=== PATIENT | female | born 1960 | race Caucasian/White ===

== ENCOUNTER 2018-01-08 22:25 | Observation (INO) | payer OTHER ==
[2018-01-08] MEDS ORDERED: NITROGLYCERIN 0.4 MG/TAB SL ONE (22:55)
[2018-01-08] MEDS ORDERED: ALBUTEROL 2.5 MG/3 ML NEB SOL ONE (23:02)
[2018-01-08] MEDS ORDERED: ASPIRIN 325 MG TAB ONE (23:02)
[2018-01-08 23:33] LABS: Absolute Lymphocytes (CBC) 1.9 K/uL (0.7-4.9); Absolute Monocytes 0.4 K/uL (0.1-1.3); Absolute Neutrophil 2.8 K/uL (1.8-8.0); Eosinophils % 9.3 % (0-4.4); Lymphocytes % 33.6 % (15.3-44.8); MCH 26.7 pg (27.0-35.0); MCV 81.9 fL (80-100); MPV 8.3 fL (7.6-11.3); Monocytes % 6.3 % (3.3-12.3)
[2018-01-08 23:36] LABS: Protime INR 1.13
[2018-01-08 23:51] LABS: ALT/SGPT 31 U/L (12-78); AST/SGOT 36 U/L (15-37); Albumin 2.8 g/dL (3.4-5.0); Alkaline Phosphatase 113 U/L (45-117); Amylase Level 38 U/L (25-115); BUN Blood Urea Nitrogen 13 mg/dL (7-18); Bicarbonate 32 mmol/L (21-32); Bilirubin Direct 0.2 mg/dL (0-0.2); Bilirubin Total 0.3 mg/dL (0.2-1.0); Glucose Level 84 mg/dL (74-106); Lipase 88 U/L (73-393); Magnesium 1.7 mg/dL (1.8-2.4); NT PRO-BNP 894 pg/mL (<125); Protein, Total 7.6 g/dL (6.4-8.2); Sodium Level 143 mmol/L (136-145)
[2018-01-09] MEDS ORDERED: FENTANYL CITR 100 MCG/2 ML ONE (00:58)
--- NOTE | 2018-01-09 03:57 | EDPHYS ---
Physician Documentation [facility] Name: Hermelinda Rinaldi Age: 57 yrs Sex: Female : 1960 Arrival Date: 01/08/2018 Time: 22:26 Bed 7 Private MD: ED Physician Hemant Edmondson HPI: 01/08 23:40 This 57 yrs old Female presents to ER via EMS with complaints of Chest Pain. wa 23:40 The patient has shortness of breath at rest, c/o SOB at rest x 2 weeks. worse with wa exertion. states feels swollen. also c/o having difficulty laying flat to sleep with chest discomfort. has to sit up to catch breath when sleeps. denies cough or fever. admits to chest tightness. h/o asthma and tobacco smoking. recent surgery L hip. in rehab for same. Onset: The symptoms/episode began/occurred 2 week(s) ago. Duration: The symptoms are continuous, and are steadily getting worse. The patient's shortness of breath is aggravated by exertion, light activity, supine position, walking, is alleviated by nothing. Associated signs and symptoms: Pertinent positives: chest pain, Pertinent negatives: non-productive cough, diaphoresis, dizziness, fever, hemoptysis, vomiting. Severity of symptoms: At their worst the symptoms were moderate in the emergency department the symptoms are worse moderately. The patient has not experienced similar symptoms in the past. The patient has not recently seen a physician. Historical: - Allergies: 22:50 No Known Allergies; bp - Home Meds: 22:50 clonidine HCl 0.1 mg Oral tab 1 tab once daily [Active]; Cymbalta 30 mg oral cpDR 1 cap bp once daily [Active]; gabapentin 300 mg oral cap 2 caps 3 times per day [Active]; losartan 50 mg oral tab 1 tab once daily [Active]; methadone 10 mg Oral tab 2 tab every 8 hours [Active]; Percocet 5-325 mg Oral tab 1 tab every 8 hours [Active]; Senokot 8.6 mg Oral tab 1 tabs twice a day [Active]; Singulair 10 mg Oral tab 1 tab once daily [Active]; trazodone 50 mg Oral tab 2 tabs nightly [Active]; - PMHx: 22:50 Depression; Asthma; Chronic pain; Hypertension; COPD; Anxiety; Hepatitis; bp - Immunization history:: Adult Immunizations up to date. - Social history:: Smoking status: Patient uses tobacco products, denies chronic smoking, but will smoke occasionally, Patient uses IV drugs, heroin. - Ebola Screening: : Patient negative for fever greater than or equal to 101.5 degrees Fahrenheit, and additional compatible Ebola Virus Disease symptoms Patient denies exposure to infectious person Patient denies travel to an Ebola-affected area in the 21 days before illness onset No symptoms or risks identified at this time. - Family history:: not pertinent. - Hospitalizations: : No recent hospitalization is reported. ROS: 23:44 Constitutional: Negative for fever, chills, and weight loss, Eyes: Negative for injury, wa pain, redness, and discharge, ENT: Negative for injury, pain, and discharge, Neck: Negative for injury, pain, and swelling, Abdomen/GI: Negative for abdominal pain, nausea, vomiting, diarrhea, and constipation, Back: Negative for injury and pain, : Negative for injury, bleeding, discharge, and swelling, MS/Extremity: Negative for injury and deformity, Skin: Negative for injury, rash, and discoloration, Neuro: Negative for headache, weakness, numbness, tingling, and seizure, Psych: Negative for depression, anxiety, suicide ideation, homicidal ideation, and hallucinations. 23:44 Cardiovascular: Positive for chest pain, edema, paroxysmal nocturnal dyspnea, Negative for palpitations. 23:44 Respiratory: Positive for shortness of breath, at rest. Negative for cough. 23:44 All other systems are negative. Exam: 23:45 Constitutional: This is a well developed, well nourished patient who is awake, alert, wa and in no acute distress. Head/Face: Normocephalic, atraumatic. Eyes: Pupils equal round and reactive to light, extra-ocular motions intact. Lids and lashes normal. Conjunctiva and sclera are non-icteric and not injected. Cornea within normal limits. Periorbital areas with no swelling, redness, or edema. ENT: Nares patent. No nasal discharge, no septal abnormalities noted. Tympanic membranes are normal and external auditory canals are clear. Oropharynx with no redness, swelling, or masses, exudates, or evidence of obstruction, uvula midline. Mucous membranes moist. Neck: Trachea midline, no thyromegaly or masses palpated, and no cervical lymphadenopathy. Supple, full range of motion without nuchal rigidity, or vertebral point tenderness. No Meningismus. Chest/axilla: Normal chest wall appearance and motion. Nontender with no deformity. No lesions are appreciated. Abdomen/GI: Soft, non-tender, with normal bowel sounds. No distension or tympany. No guarding or rebound. No evidence of tenderness throughout. Back: No spinal tenderness. No costovertebral tenderness. Full range of motion. Skin: Warm, dry with normal turgor. Normal color with no rashes, no lesions, and no evidence of cellulitis. Neuro: Awake and alert, GCS 15, oriented to person, place, time, and situation. Cranial nerves II-XII grossly intact. Motor strength 5/5 in all extremities. Sensory grossly intact. Cerebellar exam normal. Normal gait. Psych: Awake, alert, with orientation to person, place and time. Behavior, mood, and affect are within normal limits. 23:45 Cardiovascular: Rate: normal, Rhythm: regular, Pulses: no pulse deficits are appreciated, Heart sounds: normal, Edema: 1+ edema to level of left ankle, left foot, left toes, right ankle, right foot and right toes. 23:45 Respiratory: the patient does not display signs of respiratory distress, Respirations: normal, Breath sounds: decreased breath sounds, that are moderate, Respiratory rate: normal Vital Signs: 22:15 BP 171 / 81; Pulse 76; Resp 14; Temp 97.8; Pulse Ox 100% ; Weight 90.72 kg; Height 5 bp ft. 3 in. (160.02 cm); 23:00 BP 128 / 66; Pulse 69; Resp 17 S; Pulse Ox 97% on R/A; jd3 23:50 BP 120 / 61; Pulse 69; Resp 15 S; Pulse Ox 98% on R/A; jd3 01/09 01:11 BP 129 / 63; Pulse 66; Resp 14 S; Pulse Ox 96% on R/A; jd3 01:56 BP 138 / 63; Pulse 67; Resp 16; Pulse Ox 99% on R/A; mt 02:46 BP 125 / 60; Pulse 66; Resp 14; Pulse Ox 97% on R/A; mt 03:44 BP 138 / 69; Pulse 63; Resp 16; Pulse Ox 99% on R/A; mt 04:32 BP 130 / 74; Pulse 64; Resp 14 S; Pulse Ox 96% on R/A; jd3 01/08 22:15 Body Mass Index 35.43 (90.72 kg, 160.02 cm) bp MDM: 01/08 22:35 Patient medically screened. fl 23:46 Differential diagnosis: CHF exacerbation, Myocardial Infarction pneumonia, pulmonary wa edema, Pulmonary Embolism reactive airway disease, Unstable Angina. 01/09 03:54 Data reviewed: vital signs, nurses notes, lab test result(s). Test interpretation: by fl ED physician or midlevel provider: labs noted for anemia and elevated BNP. 03:55 Test interpretation: by ED physician or midlevel provider: CT chest: no PE. COPD. fl borderline cardiomegaly. Response to treatment: the patient's symptoms have markedly improved after treatment. Physician consultation: Marvin Ray MD was called at 03:56. Admission orders: after a detailed discussion of the patient's condition and case, the admit orders are written by me. 03:57 Test interpretation: by ED physician or midlevel provider: EKG: HR 70. low voltage. no fl obvious acute ischemic changes. 04:20 ED course: pt signed out AMA. risks explained and accepted by this pt w/ capacity at fl time of AMA. states needs her methadone and will not stay in the hospital without it. . 01/08 22:50 Order name: Amylase, Serum; Complete Time: 00:11 01/08 22:50 Order name: Blood Culture Adult (2) fl 01/08 22:50 Order name: BMP; Complete Time: 00:11 01/08 22:50 Order name: CBC with Diff; Complete Time: 00:11 fl 01/08 22:50 Order name: Hepatic Function; Complete Time: 00:12 01/08 22:50 Order name: Lipase; Complete Time: 00:12 01/08 22:50 Order name: XRAY CXR (1 view) 01/08 22:50 Order name: Magnesium; Complete Time: 00:12 01/08 22:50 Order name: NT PRO-BNP; Complete Time: 00:12 fl 01/08 22:50 Order name: PT-INR; Complete Time: 00:12 01/08 22:50 Order name: Troponin (emerg Dept Use Only); Complete Time: 00:12 01/09 00:13 Order name: CT Chest For PE Angio fl 01/08 22:50 Order name: EKG; Complete Time: 22:50 fl 01/08 22:50 Order name: Cardiac monitoring; Complete Time: 22:55 fl 01/08 22:50 Order name: EKG - Nurse/Tech; Complete Time: 22:55 fl 01/08 22:50 Order name: IV Saline Lock; Complete Time: 23:50 fl 01/08 22:50 Order name: Labs collected and sent; Complete Time: 23:50 fl 01/08 22:50 Order name: O2 Per Protocol; Complete Time: 22:55 fl 01/08 22:50 Order name: O2 Sat Monitoring; Complete Time: 22:55 fl Administered Medications: 01/08 22:55 Drug: Nitroglycerin 0.4 mg Route: Sublingual; [facility] 01/09 04:00 Follow up: Response: No adverse reaction [facility] 01/08 23:10 Drug: Aspirin 325 mg Route: PO; [facility] 01/09 04:01 Follow up: Response: No adverse reaction [facility] 01/08 23:10 Drug: Albuterol 2.5 mg Route: Inhalation; [facility] 01/09 04:01 Follow up: Response: No adverse reaction [facility] 01:04 Drug: fentaNYL (PF) 75 mcg Route: IVP; Site: right antecubital; [facility] 04:01 Follow up: Response: No adverse reaction [facility] Disposition: 01/09/18 03:57 Hospitalization ordered by Marvin Ray for Observation. Preliminary diagnosis are Shortness of Breath, Chest pain. - Bed requested for [facility] ER [facility]. - Status is Observation. j - Condition is Stable. - Problem is new. - Symptoms have improved. UTI on Admission? No Signatures: Dispatcher [employer] EDMS Dian Vital RN RN mw Appiah, William, MD MD wa Davies, Jonathon, RN RN jd3 Peltier, Brian RN RN bp Corrections: (The following items were deleted from the chart) 04:00 03:57 Hospitalization Ordered by Marvin Ray MD for Observation. Preliminary mw diagnosis is Shortness of Breath; Chest pain. Bed requested for Telemetry/MedSurg (observation). Status is Observation. Condition is Stable. Problem is new. Symptoms have improved. UTI on Admission? No. fl 05:34 04:00 01/09/2018 03:57 Hospitalization Ordered by Marvin Ray MD for Observation. jd3 Preliminary diagnosis is Shortness of Breath; Chest pain. Bed requested for [facility] ER HOLD. Status is Observation. Condition is Stable. Problem is new. Symptoms have improved. UTI on Admission? No. mw
--- NOTE | 2018-01-09 03:57 | ER ---
Nurse's Notes [facility] Name: Hermelinda Rinaldi Age: 57 yrs Sex: Female : 1960 Arrival Date: 01/08/2018 Time: 22:26 Bed 7 Private MD: Diagnosis: Shortness of Breath;Chest pain Presentation: 01/08 22:27 Presenting complaint: EMS states: CHEST PAIN INTERMITTENTLY FOR TWO WEEKS AND bp HYPERTENSION, THE GROUP HOME DOCTOR SAID HER EKG TODAY WAS ABNORMAL. Transition of care: patient was received from another setting of care (long-term care facility), [facility]. Onset of symptoms is unknown. Risk Assessment: Do you want to hurt yourself or someone else? Patient reports no desire to harm self or others. Initial Sepsis Screen: Does the patient meet any 2 criteria? No. Patient's initial sepsis screen is negative. Does the patient have a suspected source of infection? No. Patient's initial sepsis screen is negative. Care prior to arrival: None. 22:27 Method Of Arrival: EMS: [facility] bp 22:27 Acuity: VICTOR HUGO 2 bp Triage Assessment: 22:39 General: Appears in no apparent distress. comfortable, Behavior is calm, cooperative, bp appropriate for age. Pain: Complains of pain in chest and abdomen. EENT: Sclera/Cornea JAUNDICE. Neuro: Level of Consciousness is awake, alert, obeys commands, Oriented to person, place, time, situation, Appropriate for age. Cardiovascular: Rhythm is sinus rhythm. Respiratory: Airway is patent Respiratory effort is even, unlabored, Respiratory pattern is regular, symmetrical. GI: Abdomen is distended, noted to have ascites. : No signs and/or symptoms were reported regarding the genitourinary system. Derm: Skin is jaundiced. Musculoskeletal: Circulation, motion, and sensation intact. Range of motion: limited in left hip. Historical: - Allergies: 22:50 No Known Allergies; bp - Home Meds: 22:50 clonidine HCl 0.1 mg Oral tab 1 tab once daily [Active]; Cymbalta 30 mg oral cpDR 1 cap bp once daily [Active]; gabapentin 300 mg oral cap 2 caps 3 times per day [Active]; losartan 50 mg oral tab 1 tab once daily [Active]; methadone 10 mg Oral tab 2 tab every 8 hours [Active]; Percocet 5-325 mg Oral tab 1 tab every 8 hours [Active]; Senokot 8.6 mg Oral tab 1 tabs twice a day [Active]; Singulair 10 mg Oral tab 1 tab once daily [Active]; trazodone 50 mg Oral tab 2 tabs nightly [Active]; - PMHx: 22:50 Depression; Asthma; Chronic pain; Hypertension; COPD; Anxiety; Hepatitis; bp - Immunization history:: Adult Immunizations up to date. - Social history:: Smoking status: Patient uses tobacco products, denies chronic smoking, but will smoke occasionally, Patient uses IV drugs, heroin. - Ebola Screening: : Patient negative for fever greater than or equal to 101.5 degrees Fahrenheit, and additional compatible Ebola Virus Disease symptoms Patient denies exposure to infectious person Patient denies travel to an Ebola-affected area in the 21 days before illness onset No symptoms or risks identified at this time. - Family history:: not pertinent. - Hospitalizations: : No recent hospitalization is reported. Screenin/20 04:31 Abuse screen: Denies threats or abuse. Nutritional screening: No deficits noted. jd3 Tuberculosis screening: No symptoms or risk factors identified. Fall Risk IV access (20 points). Ambulatory Aid- None/Bed Rest/Nurse Assist (0 pts). Gait- Impaired (20 pts.). Mental Status- Oriented to own ability (0 pts). Total Morris Fall Scale indicates Low Risk Score (25-44 pts). Fall prevention measures have been instituted. Side Rails Up X 2 Placed close to Nursing Station Frequent Obs/Assesments occuring. Assessment: 01/08 22:36 General: Appears uncomfortable, Behavior is cooperative, appropriate for age. Pain: jd3 Complains of pain in chest and abdomen Pain does not radiate. Quality of pain is described as aching, pressure, Pain began 2-3 days ago. Neuro: Level of Consciousness is awake, alert, obeys commands, Oriented to person, place, time, situation, Appropriate for age. Cardiovascular: Heart tones S1 S2 present Capillary refill < 3 seconds Patient's skin is warm and dry. Respiratory: Airway is patent Respiratory effort is even, unlabored, Respiratory pattern is regular, symmetrical, Breath sounds with wheezes bilaterally. GI: Abdomen is round noted to have ascites, Bowel sounds present X 4 quads. Abdomen is tender to palpation X 4 quads. Abd is rigid X 4 quads. : No signs and/or symptoms were reported regarding the genitourinary system. EENT: No signs and/or symptoms were reported regarding the EENT system. Derm: Skin is intact, Skin is dry, Skin is normal, Skin temperature is warm. Musculoskeletal: Circulation, motion, and sensation intact. Range of motion: intact in all extremities. 23:45 Reassessment: Patient appears in no apparent distress at this time. Patient and/or jd3 family updated on plan of care and expected duration. Pain level reassessed. Patient is alert, oriented x 3, equal unlabored respirations, skin warm/dry/pink. 01/09 00:30 Reassessment: Patient appears in no apparent distress at this time. Patient and/or jd3 family updated on plan of care and expected duration. Pain level reassessed. Patient is alert, oriented x 3, equal unlabored respirations, skin warm/dry/pink. 01:12 Reassessment: Patient appears in no apparent distress at this time. Patient and/or jd3 family updated on plan of care and expected duration. Pain level reassessed. Patient is alert, oriented x 3, equal unlabored respirations, skin warm/dry/pink. 02:15 Reassessment: Patient appears in no apparent distress at this time. No changes from [facility] previously documented assessment. Patient and/or family updated on plan of care and expected duration. Pain level reassessed. Patient is alert, oriented x 3, equal unlabored respirations, skin warm/dry/pink. 03:04 Reassessment: Patient appears in no apparent distress at this time. No changes from [facility] previously documented assessment. Patient and/or family updated on plan of care and expected duration. Pain level reassessed. Patient is alert, oriented x 3, equal unlabored respirations, skin warm/dry/pink. 04:25 Reassessment: Patient appears in no apparent distress at this time. Patient and/or jd3 family updated on plan of care and expected duration. Pain level reassessed. Patient is alert, oriented x 3, equal unlabored respirations, skin warm/dry/pink. pt reported wanting to leave AMA, provider at bedside discussing plan of care. pt decided to leave AMA. 04:31 Reassessment: [facility] called and notified of pt's decision to leave AMA jd3 and expected time of arrival after EMS picks pt up. 05:28 Reassessment: Patient appears in no apparent distress at this time. Patient and/or jd3 family updated on plan of care and expected duration. Pain level reassessed. Patient is alert, oriented x 3, equal unlabored respirations, skin warm/dry/pink. report given to EMS and Renetta BLACKMON at [facility]. 05:32 Reassessment: Reassessment: EMS AT B/S FOR TRANSPORT. bp Vital Signs: 01/08 22:15 BP 171 / 81; Pulse 76; Resp 14; Temp 97.8; Pulse Ox 100% ; Weight 90.72 kg; Height 5 bp ft. 3 in. (160.02 cm); 23:00 BP 128 / 66; Pulse 69; Resp 17 S; Pulse Ox 97% on R/A; jd3 23:50 BP 120 / 61; Pulse 69; Resp 15 S; Pulse Ox 98% on R/A; jd3 01/09 01:11 BP 129 / 63; Pulse 66; Resp 14 S; Pulse Ox 96% on R/A; jd3 01:56 BP 138 / 63; Pulse 67; Resp 16; Pulse Ox 99% on R/A; mt 02:46 BP 125 / 60; Pulse 66; Resp 14; Pulse Ox 97% on R/A; mt 03:44 BP 138 / 69; Pulse 63; Resp 16; Pulse Ox 99% on R/A; mt 04:32 BP 130 / 74; Pulse 64; Resp 14 S; Pulse Ox 96% on R/A; jd3 01/08 22:15 Body Mass Index 35.43 (90.72 kg, 160.02 cm) bp ED Course: 01/08 22:26 Patient arrived in ED. bp 22:28 Triage completed. bp 22:35 Hemant Edmondson MD is Attending Physician. wa 22:36 Ac Rico, JOSEFA is Primary Nurse. jd3 22:51 Arm band placed on. bp 23:15 XRAY CXR (1 view) In Process Unspecified. EDMS 23:20 Initial lab(s) drawn, by me, sent to lab. First set of blood cultures drawn by me. fc Inserted 18 gauge 10 cm midline to right upper arm basilic vein on first attempt. Line with good blood return and flushes well. 01/09 00:58 Note: PATEINT STATED SHE DID NOT WANT THE CT BECAUSE SHE DID NOT WANT TO MOVE OFF THE BED BECAUSE HER LEGS HURT AND REQUESTED PAIN MEDS. Notified Primary Nurse . 01:30 CT Chest For PE Angio In Process Unspecified. EDMS 01:49 CT completed. Patient tolerated procedure well. Patient moved to CT via stretcher. Patient moved back from CT. 03:56 Marvin Ray MD is Hospitalizing Provider. wa 04:31 Patient has correct armband on for positive identification. Bed in low position. Call jd3 light in reach. Side rails up X2. salesperson furniture on. Pulse ox on. NIBP on. 04:32 No provider procedures requiring assistance completed. Patient maintains SpO2 jd3 saturation greater than 95% on room air. 05:31 IV discontinued. jd3 Administered Medications: 01/08 22:55 Drug: Nitroglycerin 0.4 mg Route: Sublingual; jd3 01/09 04:00 Follow up: Response: No adverse reaction j 01/08 23:10 Drug: Aspirin 325 mg Route: PO; jd3 01/09 04:01 Follow up: Response: No adverse reaction jd3 01/08 23:10 Drug: Albuterol 2.5 mg Route: Inhalation; jd3 01/09 04:01 Follow up: Response: No adverse reaction jd3 01:04 Drug: fentaNYL (PF) 75 mcg Route: IVP; Site: right antecubital; jd3 04:01 Follow up: Response: No adverse reaction jd3 Outcome: 03:57 Decision to Hospitalize by Provider. wa 05:30 AMA Other report given to EMS for transfer back to detention jd3 05:30 Condition: stable 05:30 Discharge instructions given to patient, Instructed on follow up and referral plans. Demonstrated understanding of instructions. 05:34 Patient left the ED. jd3 Signatures: Dispatcher [employer] EDMS Aj Luz Felicia, RN RN Inna Rolon mt, William, MD MD wa Davies, Jonathon, RN RN jRaheel Sanchez RN RN bp
[2018-01-09] MEDS ORDERED: LORazepam 2 MG/ML VIAL ONE (04:11)
--- NOTE | 2018-01-09 07:56 | RAD REPORT ---
EXAM DESCRIPTION: CT - Chest For Pe Angio - 01/09/2018 3:25 am CLINICAL HISTORY: Chest pain for 2 weeks COMPARISON: None. TECHNIQUE: Dynamically enhanced axial 3 mm thick images of the chest were obtained during administra tion of <100> mL Isovue 370 IV contrast. Coronal and oblique reconstruction images were generated and reviewed. Exam utilizes a protocol for optimal evaluation of pulmonary arterial tree. A preliminary report was generated by [email or web address] radiologic and reviewed prior to this dictation Maximum intensity projections 3D imaging was utilized All CT scans are performed using dose optimization technique as appropriate and may include automated exposure control or mA/KV adjustment according to patient size. FINDINGS: A pulmonary embolus is not seen. A thoracic aortic aneurysm is not noted. A pleural effusion is not seen. A pericardial effusion is not seen. A lung consolidation is not present. IMPRESSION: Negative for a pulmonary embolism.
--- NOTE | 2018-01-09 07:56 | RAD REPORT ---
EXAM DESCRIPTION: [place] Single View01/08/2018 11:17 pm CLINICAL HISTORY: Chest pain COMPARISON: none FINDINGS: The lungs appear clear of acute infiltrate. The heart is normal size IMPRESSION: No acute abnormalities displayed
--- NOTE | 2018-01-09 08:05 | EKG ---
Test Date: 2018-01-08 Test Time: 22:44:06 Soap Slabber: HAKAN MEASUREMENT RESULTS: Intervals: Rate: 70 TX: 178 QRSD: 86 QT: 460 QTc: 496 [place]: P: 62 TX: 178 QRS: 17 T: 27 INTERPRETIVE STATEMENTS: Normal sinus rhythm Low voltage QRS Cannot rule out Anterior infarct, age undetermined Abnormal ECG No previous ECG available for comparison Electronically Signed On 01-09-18 08:03:14 CDT by Reza Mcmanus
== END 2018-01-09 05:36 | disposition left against medical advice (07) ==
LOC: ER 22:25 → ERHOLD 01-09 03:59
PROVIDERS: ADMIT Hospitalist; ATTEND Hospitalist
DX: R06.02 Shortness of breath (principal); R07.9 Chest pain, unspecified; I10 Essential (primary) hypertension; J44.9 Chronic obstructive pulmonary disease, unspecified
CPT/HCPCS: 36415; 71045; 71275; 80048; 80076; 82150; 83690; 83735; 83880; 84484; 85025; 85610; 87040; 93005; 96374; 99285; G0378; J3010; Q9967

== ENCOUNTER 2018-02-20 13:00 | Inpatient (IN) | payer OTHER ==
--- NOTE | 2018-02-20 13:50 | RAD REPORT ---
EXAM DESCRIPTION: RAD - Chest Single View - 02/20/2018 1:40 pm CLINICAL HISTORY: CHEST PAIN Chest pain. COMPARISON: Chest Single View dated 01/08/2018 FINDINGS: Portable technique limits examination quality. The lungs are grossly clear. The heart is normal in size. No displaced fractures. IMPRESSION: No acute intrathoracic process suspected.
[2018-02-20 14:10] LABS: Absolute Lymphocytes (CBC) 1.7 K/uL (0.7-4.9); Absolute Monocytes 0.3 K/uL (0.1-1.3); Basophils % 0.8 % (0-1.3); Eosinophils % 11.6 % (0-4.4); Hematocrit 35.3 % (36.0-45.0); Lymphocytes % 25.2 % (15.3-44.8); MCH 28.7 pg (27.0-35.0); MCV 84.3 fL (80-100); MPV 8.5 fL (7.6-11.3); Monocytes % 4.7 % (3.3-12.3); RBC Red Blood Cell Count 4.19 M/uL (3.86-4.86)
[2018-02-20 14:43] LABS: Protime INR 1.03
[2018-02-20 14:51] LABS: BUN Blood Urea Nitrogen 85 mg/dL (7-18); Bicarbonate 27 mmol/L (21-32); CKMB Creatine Kinase MB 1.5 ng/mL (0.3-3.6); Creatine Phosphokinase 55 U/L (26-192); Glucose Level 98 mg/dL (74-106); Magnesium 2.6 mg/dL (1.8-2.4); NT PRO-BNP 155 pg/mL (<125); Sodium Level 135 mmol/L (136-145); Troponin (Emerg Dept Use Only) < 0.02 ng/mL (0.0-0.045)
[2018-02-20 14:52] LABS: Potassium 6.1 mmol/L (3.5-5.1)
--- NOTE | 2018-02-20 15:08 | ER ---
Nurse's Notes [facility] Name: Hermelinda Rinaldi Age: 57 yrs Sex: Female : 1960 Arrival Date: 02/20/2018 Time: 13:03 Bed 15 Private MD: None, None Diagnosis: Acute kidney failure;Hyperkalemia Presentation: 02/20 13:18 Presenting complaint: [facility] reports that patient had critical lab alerts from ss labs that were drawn this morning. Potassium was reportedly 7.0 and initially patient did not want to be transported to ER so Kayexalate was given at 1020 this morning. Pt c/o feeling tired the past two days. Transition of care: patient was not received from another setting of care. Onset of symptoms is unknown. Risk Assessment: Do you want to hurt yourself or someone else? Patient reports no desire to harm self or others. Initial Sepsis Screen: Does the patient have a suspected source of infection? No. Patient's initial sepsis screen is negative. Care prior to arrival: None. 13:18 Method Of Arrival: Wheelchair ss 13:18 Acuity: VICTOR HUGO 3 14:30 Initial Sepsis Screen: Does the patient meet any 2 criteria? No. Patient's initial iw sepsis screen is negative. Historical: - Allergies: 13:23 Toradol; ss - Home Meds: 18:48 clonidine HCl 0.1 mg Oral tab 1 tab TID, PRN for systolic >160 [Active]; Aldactone 25 iw mg Oral tab 1 tab once daily [Active]; Ativan 0.5 mg Oral tab 1 tab 2 times per day [Active]; Avapro 150 mg Oral tab twice a day [Active]; Coreg 3.125 mg Oral tab 1 tab 2 times per day [Active]; Cymbalta 30 mg oral cpDR 1 cap once daily [Active]; gabapentin 300 mg oral cap twice a day [Active]; ibuprofen 600 mg Oral tab twice a day [Active]; Lasix 40 mg Oral tab 1 tab once daily [Active]; methadone 10 mg Oral tab 1 tab every 8 hours [Active]; Pataday 0.2 % ophthalmic drop 1 drop once daily [Active]; ProAir HFA 90 mcg/actuation inhalation HFAA 2 puffs three times a day [Active]; Senokot 8.6 mg Oral tab 2 tabs once daily [Active]; Singulair 10 mg Oral tab 1 tab once daily [Active]; trazodone 150 mg Oral tab nightly [Active]; Zofran (as hydrochloride) 4 mg Oral tab every 6 hours [Active]; - PMHx: 13:23 Anxiety; Chronic pain; Hypertension; Hepatitis; Depression; Asthma; COPD; insomnia; ss Arthritis; - Immunization history:: Adult Immunizations up to date. - Social history:: Smoking status: Patient uses tobacco products, smokes one-half pack cigarettes per day. - Ebola Screening: : Patient denies exposure to infectious person Patient denies travel to an Ebola-affected area in the 21 days before illness onset. Screenin:00 Abuse screen: Denies threats or abuse. Denies injuries from another. Nutritional sg screening: No deficits noted. Tuberculosis screening: No symptoms or risk factors identified. Never had TB. Fall Risk None identified. Assessment: 13:00 General: Appears in no apparent distress. uncomfortable, obese, unkempt, well sg developed, well nourished, Behavior is calm, cooperative, appropriate for age. Pain: Complains of pain in left hip Quality of pain is described as crampy, tender, pt reports recent hip sx in [place] [facility] fx, at [facility] facility for [facility]hab, to be d/c to home soon. Neuro: No deficits noted. Cardiovascular: Patient's skin is warm and dry. Chest pain is denied. Respiratory: Airway is patent Respiratory effort is even, unlabored, Respiratory pattern is regular, symmetrical. GI: No signs and/or symptoms were reported involving the gastrointestinal system. : No signs and/or symptoms were reported regarding the genitourinary system. EENT: No signs and/or symptoms were reported regarding the EENT system. Derm: Skin is intact, is healthy with good turgor, Skin is dry, Skin is jaundiced, Skin temperature is warm. Musculoskeletal: No signs and/or symptoms reported regarding the musculoskeletal system. 14:59 Reassessment: spoke with nurse at [facility] to clarify what dose of Kayexalate was given at ss 1020. Nurse reports that it was 15 g in 60 mL. Brynn Nava NP notified of critical lab value 6.1. 15:45 Reassessment: Patient appears in no apparent distress at this time. pt appears to be iw sleeping, awakens easily to verbal stimuli, pt drowsy, VSS, breathing tx complete, calcium infusing freely to RAC. 16:11 Reassessment: pt notified that her mother called, pt requesting pain medicine, states iw she normally takes Percocet, pt advised that BP is too low for her to have her pain medicine at this time, BP=84/54 while sleeping, BP 92/57 while awake and talking, pt then states that she was taken off Percocet since she was going to be discharged from the facility but now that she's back on PT, they started her back on Percocet and she also needs her methadone. 16:53 Reassessment: pt appears diaphoretic, slow to respond, Dr. Phillips at bedside, order iw for 500 ml NS bolus and continue fluids at 100 ml/hr, IORU=[id number], repeat EKG ordered. 17:20 Reassessment: Dr. Hoff notified of low BP and increased drowsiness, verbal order given iw for another [address] of head. 17:27 Reassessment: pt appears more drowsy, responds easily to strong verbal stimuli, iw oriented X3, asking for food, then goes right back to sleep. 17:46 Reassessment: pt sitting up, food tray given, pt assisted with eating, able to eat a iw few bites then falls asleep, BP up to 94/53 after 900 ml NS, awaiting CT. 18:33 Reassessment: Dr. Hoff notified of BP 83/53 after 1 liter bolus, CT was negative, iw orders to given another 500 mL NS Bolus and will place pt in ICU, [facility] Vehicle Monitor Technician notified. 19:37 General: Appears in no apparent distress. comfortable, obese, unkempt, well developed, iw well nourished, Behavior is calm, cooperative, appropriate for age. Pain: Complains of pain in pelvis and left hip Pain currently is 0 out of 10 on a pain scale. Neuro: Level of Consciousness is awake, alert, obeys commands, Oriented to person, place, time, situation, Appropriate for age Moves all extremities. Full function Speech is normal, Facial symmetry appears normal. Cardiovascular: Capillary refill < 3 seconds Patient's skin is warm and dry. Respiratory: Airway is patent Respiratory effort is even, unlabored, Respiratory pattern is regular, symmetrical. GI: Abdomen is obese. : No signs and/or symptoms were reported regarding the genitourinary system. EENT: No signs and/or symptoms were reported regarding the EENT system. Derm: Skin is intact, is healthy with good turgor, Skin is dry, Skin is pink, warm \T\ dry. jaundiced, Skin temperature is warm. Musculoskeletal: No signs and/or symptoms reported regarding the musculoskeletal system. Circulation, motion, and sensation intact. Range of motion: limited in all extremities. 19:39 Reassessment: Patient to be taken to ICU when US is complete. US is currently at iw bedside. 19:49 Reassessment: Call ICU and spoke to JOSEFA Rojas about patient BP status. DR Ray to be iw call to get patient downgraded. Waiting for orders at this moment. Vital Signs: 13:23 BP 115 / 50; Pulse 79; Resp 18; Temp 97.9(TE); Pulse Ox 98% on R/A; Weight 96.16 kg; Height 5 ft. 9 in. (175.26 cm); 14:30 BP 94 / 44; Pulse 77; Resp 18 S; Pulse Ox 98% on R/A; sg 15:45 BP 101 / 79; Pulse 72; Resp 14; Pulse Ox 98% on R/A; iw 16:15 BP 92 / 57; Pulse 73; Resp 14; Pulse Ox 97% on R/A; iw 17:07 BP 104 / 86; Pulse 71; Resp 14; Pulse Ox 99% on R/A; iw 17:15 BP 77 / 39; Pulse 64; Resp 14 S; iw 17:25 BP 87 / 44; Pulse 68; Resp 14; Pulse Ox 98% on R/A; iw 17:37 BP 89 / 54; Pulse 69; Resp 14; Pulse Ox 97% on R/A; iw 18:42 BP 129 / 86; Pulse 72; Resp 16; Pulse Ox 98% ; iw 19:00 BP 149 / 80; Pulse 70; Resp 18; Pulse Ox 99% on R/A; iw 19:34 BP 156 / 83; Pulse 74; Resp 16; Pulse Ox 98% on R/A; Pain 0/10; iw 13:23 Body Mass Index 31.31 (96.16 kg, 175.26 cm) ED Course: 13:03 Patient arrived in ED. mr 13:03 None, None is Private Physician. mr 13:09 [facility]C [facility] kb 13:09 Pradip Wiley MD is Attending Physician. kb 13:21 Triage completed. ss 13:23 Arm band placed on right wrist. ss 13:37 X-ray completed. Portable x-ray completed in exam room. Patient tolerated procedure mh1 well. 13:38 XRAY Chest (1 view) In Process Unspecified. EDMS 13:48 EKG done, by histologist technologist. reviewed by Brynn CHEEMA. at1 13:57 Inserted saline lock: 20 gauge in right antecubital area, using aseptic technique. ss Blood collected. 14:30 Carlos A Arshad, RN is Primary Nurse. sg 15:03 Beth Diego, JOSEFA is Primary Nurse. iw 15:08 Daniela Hoff MD is Hospitalizing Provider. kb 17:47 Patient has correct armband on for positive identification. handstitching machine armhole feller on. Pulse iw ox on. NIBP on. 17:47 No provider procedures requiring assistance completed. iw 18:[address] via stretcher. nj 18:01 CT completed. Patient tolerated procedure well. Patient moved back from CT. nj 19:28 Primary Nurse role handed off by Beth Diego, JOSEFA eb 19:30 Beth Diego, RN is Primary Nurse. iw 20:30 Patient admitted, IV remains in place. iw Administered Medications: 15:15 Drug: D50W 50 ml Route: IVP; Site: right antecubital; iw 16:10 Follow up: Response: No adverse reaction iw 15:20 Drug: Insulin Regular Human 10 units {Co-Signature: rios (Angel Leigh [facility]).} Route: IVP; iw Site: right antecubital; 16:32 Follow up: Response: No adverse reaction iw 15:23 Drug: Calcium Gluconate 1 grams Route: IVPB; Infused Over: 60 mins; Site: right iw antecubital; 16:25 Follow up: IV Status: Completed infusion iw 15:24 Drug: Albuterol 2.5 mg Route: Inhalation; iw 16:40 Drug: NS 0.9% 1000 ml Route: IV; Rate: 1000 ml; Site: right antecubital; iw 17:40 Follow up: IV Status: Completed infusion iw 18:25 Drug: NS 0.9% 500 ml Route: IV; Rate: bolus; Site: right antecubital; iw 19:34 Follow up: IV Status: Completed infusion; IV Intake: 500ml iw 19:03 Drug: NS 0.9% 1000 ml Route: IV; Rate: 100 ml/hr; Site: right antecubital; iw 19:34 Follow up: IV Status: Infusion continued upon admission iw Point of Care Testing: Blood Glucose: 17:07 Blood Glucose: 155 mg/dL; iw Ranges: Intake: 19:34 IV: 500ml; Total: 500ml. iw Outcome: 15:08 Decision to Hospitalize by Provider. kb 20:29 Admitted to ICU accompanied by nurse, room 3, on monitor, with chart, Other Bedside iw report given to JOSEFA Rojas 20:29 Condition: stable 20:29 Instructed on the need for admit. 20:30 Patient left the ED. iw Signatures: Dispatcher [employer] EDMS Brynn Nava, TELE RN-C TELE RN-Ckb Carlos A Arshad, RN RN Krystal Slater KarlDian mh1 eBth Diego, JOSEFA RIVERO Karen Shanks RN RN ss Bonnie Martinez, premium service representative EKG Tat1 Stanley Monroe Elizabeth eb Edgar Munoz [facility] em Corrections: (The following items were deleted from the chart) 19:37 18:42 BP 129 / 86; Pulse 72bpm; Resp 70bpm; Pulse Ox 98%; iw iw
--- NOTE | 2018-02-20 15:08 | EDPHYS ---
Physician Documentation [facility] Name: Hermelinda Rinaldi Age: 57 yrs Sex: Female : 1960 Arrival Date: 02/20/2018 Time: 13:03 Bed 15 Private MD: None, None ED Physician Pradip Wiley HPI: 02/20 13:32 This 57 yrs old Female presents to ER via Wheelchair with complaints of kb Abnormal Lab Results. 13:33 Pt states she was told that her potassium was high and her kidneys were failing. Denies kb any symptoms. . Onset: The symptoms/episode began/occurred today. The patient has not experienced similar symptoms in the past. The patient has not recently seen a physician. Historical: - Allergies: 13:23 Toradol; ss - Home Meds: 18:48 clonidine HCl 0.1 mg Oral tab 1 tab TID, PRN for systolic >160 [Active]; Aldactone 25 iw mg Oral tab 1 tab once daily [Active]; Ativan 0.5 mg Oral tab 1 tab 2 times per day [Active]; Avapro 150 mg Oral tab twice a day [Active]; Coreg 3.125 mg Oral tab 1 tab 2 times per day [Active]; Cymbalta 30 mg oral cpDR 1 cap once daily [Active]; gabapentin 300 mg oral cap twice a day [Active]; ibuprofen 600 mg Oral tab twice a day [Active]; Lasix 40 mg Oral tab 1 tab once daily [Active]; methadone 10 mg Oral tab 1 tab every 8 hours [Active]; Pataday 0.2 % ophthalmic drop 1 drop once daily [Active]; ProAir HFA 90 mcg/actuation inhalation HFAA 2 puffs three times a day [Active]; Senokot 8.6 mg Oral tab 2 tabs once daily [Active]; Singulair 10 mg Oral tab 1 tab once daily [Active]; trazodone 150 mg Oral tab nightly [Active]; Zofran (as hydrochloride) 4 mg Oral tab every 6 hours [Active]; - PMHx: 13:23 Anxiety; Chronic pain; Hypertension; Hepatitis; Depression; Asthma; COPD; insomnia; ss Arthritis; - Immunization history:: Adult Immunizations up to date. - Social history:: Smoking status: Patient uses tobacco products, smokes one-half pack cigarettes per day. - Ebola Screening: : Patient denies exposure to infectious person Patient denies travel to an Ebola-affected area in the 21 days before illness onset. ROS: 13:31 Constitutional: Negative for fever, chills, and weight loss, Cardiovascular: Negative kb for chest pain, palpitations, and edema, Respiratory: Negative for shortness of breath, cough, wheezing, and pleuritic chest pain, Abdomen/GI: Negative for abdominal pain, nausea, vomiting, diarrhea, and constipation, Back: Negative for injury and pain, : Negative for injury, bleeding, discharge, and swelling, MS/Extremity: Negative for injury and deformity, Skin: Negative for injury, rash, and discoloration, Neuro: Negative for headache, weakness, numbness, tingling, and seizure. Exam: 13:31 Constitutional: This is a well developed, well nourished patient who is awake, alert, kb and in no acute distress. Head/Face: Normocephalic, atraumatic. Chest/axilla: Normal chest wall appearance and motion. Nontender with no deformity. No lesions are appreciated. Cardiovascular: Regular rate and rhythm with a normal S1 and S2. No gallops, murmurs, or rubs. Normal PMI, no JVD. No pulse deficits. Respiratory: Lungs have equal breath sounds bilaterally, clear to auscultation and percussion. No rales, rhonchi or wheezes noted. No increased work of breathing, no retractions or nasal flaring. Abdomen/GI: Soft, non-tender, with normal bowel sounds. No distension or tympany. No guarding or rebound. No evidence of tenderness throughout. Back: No spinal tenderness. No costovertebral tenderness. Full range of motion. Skin: Warm, dry with normal turgor. Normal color with no rashes, no lesions, and no evidence of cellulitis. MS/ Extremity: Pulses equal, no cyanosis. Neurovascular intact. Full, normal range of motion. Neuro: Awake and alert, GCS 15, oriented to person, place, time, and situation. Cranial nerves II-XII grossly intact. Motor strength 5/5 in all extremities. Sensory grossly intact. Cerebellar exam normal. Normal gait. Vital Signs: 13:23 BP 115 / 50; Pulse 79; Resp 18; Temp 97.9(TE); Pulse Ox 98% on R/A; Weight 96.16 kg; ss Height 5 ft. 9 in. (175.26 cm); 14:30 BP 94 / 44; Pulse 77; Resp 18 S; Pulse Ox 98% on R/A; sg 15:45 BP 101 / 79; Pulse 72; Resp 14; Pulse Ox 98% on R/A; iw 16:15 BP 92 / 57; Pulse 73; Resp 14; Pulse Ox 97% on R/A; iw 17:07 BP 104 / 86; Pulse 71; Resp 14; Pulse Ox 99% on R/A; iw 17:15 BP 77 / 39; Pulse 64; Resp 14 S; iw 17:25 BP 87 / 44; Pulse 68; Resp 14; Pulse Ox 98% on R/A; iw 17:37 BP 89 / 54; Pulse 69; Resp 14; Pulse Ox 97% on R/A; iw 18:42 BP 129 / 86; Pulse 72; Resp 16; Pulse Ox 98% ; iw 19:00 BP 149 / 80; Pulse 70; Resp 18; Pulse Ox 99% on R/A; iw 19:34 BP 156 / 83; Pulse 74; Resp 16; Pulse Ox 98% on R/A; Pain 0/10; iw 13:23 Body Mass Index 31.31 (96.16 kg, 175.26 cm) ss MDM: 13:11 Patient medically screened. audrey 13:32 Data reviewed: vital signs, nurses notes. Data interpreted: Pulse oximetry: on room air kb is 98 %. Interpretation: normal. 15:07 Counseling: I had a detailed discussion with the patient and/or guardian regarding: the kb historical points, exam findings, and any diagnostic results supporting the discharge/admit diagnosis, lab results, the need for further work-up and treatment in the hospital. Physician consultation: Daniela Hoff MD was contacted at 15:07, regarding admission, to the telemetry unit. patient's condition, and will see patient in ED, shortly. 02/20 13:15 Order name: PT-INR; Complete Time: 14:46 kb 02/20 13:15 Order name: Basic Metabolic Panel; Complete Time: 14:54 kb 02/20 13:15 Order name: CBC with Diff; Complete Time: 14:24 kb 02/20 13:15 Order name: Ckmb; Complete Time: 14:54 kb 02/20 13:15 Order name: CPK; Complete Time: 14:54 kb 02/20 13:15 Order name: Magnesium; Complete Time: 14:54 kb 02/20 13:15 Order name: NT PRO-BNP; Complete Time: 14:54 kb 02/20 13:15 Order name: Ptt, Activated; Complete Time: 14:46 kb 02/20 13:15 Order name: Troponin (emerg Dept Use Only); Complete Time: 14:54 kb 02/20 13:15 Order name: XRAY Chest (1 view); Complete Time: 13:51 kb 02/20 16:56 Order name: AMMONIA iw 02/20 17:18 Order name: Ammonia; Complete Time: 17:21 EDMS 02/20 17:20 Order name: Potassium; Complete Time: 17:21 EDMS 02/20 17:41 Order name: CT Head Brain wo Cont iw 02/20 13:15 Order name: EKG; Complete Time: 13:16 kb 02/20 13:15 Order name: Cardiac monitoring; Complete Time: 13:57 kb 02/20 13:15 Order name: EKG - Nurse/Tech; Complete Time: 13:57 kb 02/20 13:15 Order name: IV Saline Lock; Complete Time: 13:57 kb 02/20 13:15 Order name: Labs collected and sent; Complete Time: 13:57 kb 02/20 13:15 Order name: O2 Per Protocol; Complete Time: 13:57 kb 02/20 13:15 Order name: O2 Sat Monitoring; Complete Time: 13:57 kb 02/20 18:18 Order name: CT; Complete Time: 10:19 EDMS 02/20 20:04 Order name: US; Complete Time: 10:19 EDMS Administered Medications: 15:15 Drug: D50W 50 ml Route: IVP; Site: right antecubital; iw 16:10 Follow up: Response: No adverse reaction iw 15:20 Drug: Insulin Regular Human 10 units {Co-Signature: rois (Angel Leigh DEL[employer]).} Route: IVP; iw Site: right antecubital; 16:32 Follow up: Response: No adverse reaction iw 15:23 Drug: Calcium Gluconate 1 grams Route: IVPB; Infused Over: 60 mins; Site: right iw antecubital; 16:25 Follow up: IV Status: Completed infusion iw 15:24 Drug: Albuterol 2.5 mg Route: Inhalation; iw 16:40 Drug: NS 0.9% 1000 ml Route: IV; Rate: 1000 ml; Site: right antecubital; iw 17:40 Follow up: IV Status: Completed infusion iw 18:25 Drug: NS 0.9% 500 ml Route: IV; Rate: bolus; Site: right antecubital; iw 19:34 Follow up: IV Status: Completed infusion; IV Intake: 500ml iw 19:03 Drug: NS 0.9% 1000 ml Route: IV; Rate: 100 ml/hr; Site: right antecubital; iw 19:34 Follow up: IV Status: Infusion continued upon admission iw Point of Care Testing: Blood Glucose: 17:07 Blood Glucose: 155 mg/dL; iw Ranges: Critical Glucose Levels:Adult <50 mg/dl or >400 mg/dl <40 mg/dl or >180 mg/dl Disposition: 02/20/18 15:08 Hospitalization ordered by Daniela Hoff for Inpatient Admission. Preliminary diagnosis are Acute kidney failure, Hyperkalemia. - Bed requested for Intensive Care Unit. - Status is Inpatient Admission. iw - Condition is Stable. - Problem is new. - Symptoms are unchanged. UTI on Admission? No Addendum: 02/24/2018 08:14 Co-signature as Attending Physician, Pradip Wiley MD I agree with the assessment and c martinez plan of care. Signatures: Dispatcher [employer] Brynn Multani, ELECTRICAL LINESWORKER-C ELECTRICAL LINESWORKER-Ckb Pradip Wiley MD MD cha Williams, Irene, RN RN Karen Shanks RN RN Emily Tesfaye Angel Leigh [facility] Corrections: (The following items were deleted from the chart) 02/20 15:09 15:08 Hospitalization Ordered by Daniela Hoff MD for Inpatient Admission. Preliminary kb diagnosis is Acute kidney failure. Bed requested for Telemetry/MedSurg (Inpatient). Status is Inpatient Admission. Condition is Stable. Problem is new. Symptoms are unchanged. UTI on Admission? No. kb 15:12 15:09 02/20/2018 15:08 Hospitalization Ordered by Daniela Hoff MD for Inpatient eb Admission. Preliminary diagnosis is Acute kidney failure; Hyperkalemia. Bed requested for Telemetry/MedSurg (Inpatient). Status is Inpatient Admission. Condition is Stable. Problem is new. Symptoms are unchanged. UTI on Admission? No. kb 16:26 15:12 02/20/2018 15:08 Hospitalization Ordered by Daniela Hoff MD for Inpatient eb Admission. Preliminary diagnosis is Acute kidney failure; Hyperkalemia. Bed requested for Telemetry/MedSurg (Inpatient). Status is Inpatient Admission. Condition is Stable. Problem is new. Symptoms are unchanged. UTI on Admission? No. eb 17:31 16:26 02/20/2018 15:08 Hospitalization Ordered by Daniela Hoff MD for Inpatient iw Admission. Preliminary diagnosis is Acute kidney failure; Hyperkalemia. Bed requested for Telemetry/MedSurg (Inpatient). Status is Inpatient Admission. Condition is Stable. Problem is new. Symptoms are unchanged. UTI on Admission? No. eb 18:41 17:31 02/20/2018 15:08 Hospitalization Ordered by Daniela Hoff MD for Inpatient eb Admission. Preliminary diagnosis is Acute kidney failure; Hyperkalemia. Bed requested for Telemetry/MedSurg (Inpatient). Status is Inpatient Admission. Condition is Stable. Problem is new. Symptoms are unchanged. UTI on Admission? No. iw 20:30 18:41 02/20/2018 15:08 Hospitalization Ordered by Daniela Hoff MD for Inpatient iw Admission. Preliminary diagnosis is Acute kidney failure; Hyperkalemia. Bed requested for Intensive Care Unit. Status is Inpatient Admission. Condition is Stable. Problem is new. Symptoms are unchanged. UTI on Admission? No. eb
[2018-02-20] MEDS ORDERED: INSULIN -REGULAR HUMAN 50 UNIT/0.5 ML ML ONE (15:13)
[2018-02-20] MEDS ORDERED: D50W 25 GM/50 ML SYRINGE IV ONE (15:13)
[2018-02-20] MEDS ORDERED: ALBUTEROL 2.5 MG/3 ML NEB SOL ONE (15:13)
[2018-02-20] MEDS ORDERED: SOD POLYSTYREN SUL 15 GM/60 ML UCUP PO ONE (15:39)
[2018-02-20] MEDS ORDERED: ACETAMINOPHEN 500 MG TAB PO PRN (15:39)
[2018-02-20] MEDS ORDERED: ONDANSETRON 4 MG/2 ML VIAL IV PRN (15:39)
[2018-02-20] MEDS ORDERED: NA CHLORIDE 0.9% 1,000 ML IV SCH ×2 (16:00)
[2018-02-20] MEDS ORDERED: CALCIUM GLUCONATE 1gm/100 ML NS (4.65 mEq/100mL) IV ONE ×2 (16:00)
[2018-02-20] MEDS ORDERED: cloNIDine HCl 0.1 MG TAB ONE (16:02)
[2018-02-20] MEDS ORDERED: HYDRALAZINE HCL 20 MG/ML VIAL ONE (16:02)
[2018-02-20] MEDS ORDERED: AMLODIPINE 5 MG TAB ONE (16:03)
[2018-02-20] MEDS ORDERED: LISINOPRIL 10 MG TAB ONE (16:03)
[2018-02-20] MEDS ORDERED: NA CHLORIDE 0.9% 500 ML ONE ×2 (16:57→17:24)
[2018-02-20] MEDS ORDERED: NA CHLORIDE 0.9% 1,000 ML ONE (18:18)
--- NOTE | 2018-02-20 18:18 | RAD REPORT ---
EXAM DESCRIPTION: CT - Head Brain Wo Cont - 02/20/2018 6:03 pm CLINICAL HISTORY: Alteration of awareness/confusion COMPARISON: None TECHNIQUE: Computed axial tomography of the head was obtained. IV contrast was not requested. All CT scans are performed using dose optimization technique as appropriate and may include automated exposure control or mA/KV adjustment according to patient size. FINDINGS: An intracranial bleed is not seen . The ventricles are normal in caliber. No extra-axial fluid collection is noted. Fluid within the sinuses/ mastoids is not seen. IMPRESSION: No acute intracranial abnormality is seen. If patient's symptoms persist MRI of the bra in would be recommended.
--- NOTE | 2018-02-20 20:04 | RAD REPORT ---
EXAM DESCRIPTION: US - Renal Ultrasound-Complete - 02/20/2018 7:54 pm CLINICAL HISTORY: Acute renal insufficiency and . COMPARISON: None. FINDINGS: The right kidney measures 9 cm with a normal echotexture. The left kidney measures 10 cm with a normal echotexture. Hydronephrosis is not seen. No gross abnormality of bladder is noted IMPRESSION: Unremarkable renal ultrasound.
[2018-02-20] MEDS: MORPHINE 2 MG/ML SYR IV PRN (22:30)
[2018-02-21] MEDS: MORPHINE 2 MG/ML SYR IV PRN ×2 (05:16→09:00)
--- NOTE | 2018-02-21 06:07 | EKG ---
Test Date: 2018-02-20 Test Time: 13:31:21 Web Site Manager: JOE MEASUREMENT RESULTS: Intervals: Rate: 70 LA: 170 QRSD: 86 QT: 392 QTc: 423 [place]: P: 56 LA: 170 QRS: 15 T: 29 INTERPRETIVE STATEMENTS: Normal sinus rhythm Normal ECG Compared to ECG 01/08/2018 22:44:06 Myocardial infarct finding no longer present Electronically Signed On 02-21-18 06:06:14 CDT by Reza Mcmanus
[2018-02-21 06:51] LABS: Urine Appearance CLEAR; Urine Bilirubin NEGATIVE (NEG); Urine Blood NEGATIVE (NEG); Urine Color YELLOW; Urine Glucose NEGATIVE (NEG); Urine Microscopic Reflex NO UMIC; Urine Protein NEGATIVE (NEG); Urine Specific Gravity 1.015 (1.005-1.030); Urine Urobilinogen 0.2 mg/dL (0.2-1.0); Urine pH 5.5 (5.0-7.0)
[2018-02-21 07:19] LABS: Urine Protein/Creatinine Ratio 0.31 ratio (<0.15)
--- NOTE | 2018-02-21 07:50 | P.HP ---
Certification for Inpatient Patient admitted to: Inpatient With expected LOS: >2 Midnights Patient will require the following post-hospital care: None Practitioner: I am a practitioner with admitting privileges, knowledge of patient current condition, hospital course, and medical plan of care. Services: Services provided to patient in accordance with Admission requirements found in Title 42 Section 412.3 of the Code of Federal Regulations Patient History Date of Service: 02/20/18 History of Present Illness: patient is a 57-year-old female who lives at [facility] after hip procedure. Patient had been doing well but over the last few days was very lethargic. They did lab workup at the nursing facility and found her to be hyperkalemic. She also has significant uremia. It was felt she has uremic encephalopathy along with acute kidney injury. She was severely dehydrated. She was admitted to the hospital for rehydration and treatment of her hyperkalemia and encephalopathy. Incidentally, she was hypotensive. This was most likely related to her dehydration. She was giving Kayexalate at the halfway which gave her diarrhea which dropped her blood pressure some more. This did help her potassium come down. Will admit her to the ICU for 24 hr and hydrate her aggressively. Once her blood pressure stabilizes she should be able to come out to the floor. Will need physical therapy evaluation as well. Allergies No Known Allergies Allergy (Unverified 01/09/18 05:38) Home Medications: Acetaminophen [Tylenol] 650 mg PO Q6HP PRN 02/21/18 Albuterol Sulfate [Proair Hfa] 2 puff IH TID 02/21/18 Carvedilol [Coreg*] 3.125 mg PO BID 02/21/18 Duloxetine HCl [Cymbalta] 30 mg PO DAILY 02/21/18 Furosemide [Lasix] 40 mg PO DAILY 02/21/18 Gabapentin [Neurontin] 300 mg PO TID 02/21/18 Ibuprofen [Ibu] 600 mg PO BID 02/21/18 Irbesartan [Avapro] 150 mg PO BID 02/21/18 LORazepam [Ativan] 0.5 mg PO BID 02/21/18 Methadone HCl 10 mg PO Q8HR 02/21/18 Montelukast Sodium [Singulair] 10 mg PO DAILY 02/21/18 Olopatadine HCl [Pataday] 1 gtt OPTH DAILY 02/21/18 Ondansetron HCl [Zofran] 4 mg PO Q6HP PRN 02/21/18 Oxycodone HCl/Acetaminophen [Percocet 5-325 mg Tablet] 5 - 325 mg PO BID Sennosides [Senokot] 8.6 mg PO BID 02/21/18 Spironolactone [Aldactone] 25 mg PO DAILY 02/21/18 Trazodone [Desyrel*] 150 mg PO BEDTIME 02/21/18 cloNIDine HCl [Clonidine HCl] 0.1 mg PO Q8HP PRN 02/21/18 - Past Medical/Surgical History Has patient received pneumonia vaccine in the past: Yes Diabetic: No -: CHF -: asthma -: insomnia -: chronic pain -: osteomyelitis -: arthritis -: anxiety -: left hip surgery - Family History Father Medical History: Heart disease Mother Medical History: Cancer - Social History Smoking Status: Current every day smoker Alcohol use: No CD- Drugs: No Caffeine use: Yes Place of Residence: Shelter Review of Systems 10-point ROS is otherwise unremarkable Physical Examination - Vital Signs Temperature: 97.4 F Blood Pressure: 129/63 Pulse: 70 Respirations: 17 Pulse Ox (%): 100 - Physical Exam General: Alert, In no apparent distress, Other ( Lethargic - oriented to person and to place) HEENT: Atraumatic, PERRLA, Mucous membr. moist/pink, EOMI, Sclerae nonicteric Neck: Supple, 2+ carotid pulse no bruit, No LAD, Without JVD or thyroid abnormality Respiratory: Clear to auscultation bilaterally, Normal air movement Cardiovascular: Regular rate/rhythm, Normal S1 S2, Systolic murmur Gastrointestinal: Normal bowel sounds, Soft and benign, Non-distended, No tenderness Musculoskeletal: No clubbing, No swelling, No tenderness Integumentary: No rashes Neurological: Normal speech, Normal tone, Sensation intact, Cranial nerves 3-12 intact, Normal affect, Abnormal gait, Abnormal strength Lymphatics: No axilla or inguinal lymphadenopathy - Studies Laboratory Data (last 24 hrs) 02/20/18 13:40: WBC 6.9, Hgb 12.0, Hct 35.3 L, Plt Count 172 02/20/18 13:40: Sodium 135 L, Potassium 6.1 H*, BUN 85 H, Creatinine 1.70 H, Glucose 98, Magnesium 2.6 H D 02/20/18 13:40: PT 12.1, INR 1.03, APTT 34.5 Assessment & Plan - Problems (Diagnosis) (1) Hypotensive episode Current Visit: Yes Status: Acute (2) Uremic encephalopathy Current Visit: Yes Status: Acute (3) Hyperkalemia Current Visit: Yes Status: Acute (4) Aftercare following left hip joint replacement surgery Current Visit: Yes Status: Acute (5) Hypertension Current Visit: Yes Status: Chronic Qualifiers: Hypertension type: essential hypertension Qualified Code(s): I10 - Essential (primary) hypertension (6) Dehydration Current Visit: Yes Status: Acute - Plan plan: 1. Aggressive IV hydration 2. Monitor potassium level closely 3. Monitor renal function closely 4. Physical therapy evaluation 5. Once blood pressure stabilizes patient should be stable for transfer to the floor 6. Resume home medications 7. GI and DVT prophylaxis - Advance Directives Does patient have a Living Will: No Does patient have a Durable POA for Healthcare: No - Code Status/Comfort Care Code Status Assessed: Yes Code Status: Full Code Critical Care: No Time Spent Managing PTS Care (In Minutes): 50
[2018-02-21 11:36] LABS: Absolute Lymphocytes (CBC) 1.4 K/uL (0.7-4.9); Absolute Monocytes 0.4 K/uL (0.1-1.3); Absolute Neutrophil 3.2 K/uL (1.8-8.0); Basophils % 0.5 % (0-1.3); Eosinophils % 9.8 % (0-4.4); Hematocrit 36.2 % (36.0-45.0); Lymphocytes % 25.7 % (15.3-44.8); MCH 27.7 pg (27.0-35.0); MCV 84.2 fL (80-100); Monocytes % 6.7 % (3.3-12.3)
[2018-02-21 11:46] LABS: Albumin 3.2 g/dL (3.4-5.0); Bilirubin Total 0.5 mg/dL (0.2-1.0); Phosphorus 4.3 mg/dL (2.5-4.9); Potassium 5.2 mmol/L (3.5-5.1); Protein, Total 8.2 g/dL (6.4-8.2)
--- NOTE | 2018-02-23 07:59 | EKG ---
Test Date: 2018-02-20 Test Time: 16:53:38 Chemical Analytical Sampler: LOIDA MEASUREMENT RESULTS: Intervals: Rate: 72 VA: 166 QRSD: 92 QT: 398 QTc: 435 [place]: P: 32 VA: 166 QRS: 0 T: 13 INTERPRETIVE STATEMENTS: Normal sinus rhythm Normal ECG Compared to ECG 02/20/2018 13:31:21 No significant changes Electronically Signed On 02-23-18 07:55:34 CDT by Reza Mcmanus
--- NOTE | 2018-02-24 08:46 | CON ---
Date of Consultation: 02/20/2018 Reason For Consultation: Elevated BUN and creatinine, hyperkalemia. History Of Present Illness: This is a pleasant, unfortunate, 57-year-old female with significant past medical history of hypertension, hyperlipidemia, chronic kidney disease. The patient alf resident secondary to hip fracture. The patient lab shows elevated potassium for that reason the patient directed to the ER on outpatient setting care, potassium was 5. The patient was sent to the emergency room. On the evaluation in the ER, potassium was 6.1 , the patient giving the cocktail. Her creatinine was also elevated 1.7, and she has peripheral eosinophilia. Reviewing the record, the patient apparently on Avapro, Aldactone, and ibuprofen in the alf for pain control. The patient denied any taking any NSAID, Denied any polyuria or dysuria. Denied any IV contrast . In the ER, the patient got diaphoretic and the blood pressure was on the lower side. Past Medical History: Include: 1. Hypertension. 2. Hyperlipidemia. 3. Hip fracture. Past Surgical History: Include hip fracture repair. Allergies: NO KNOWN DRUGS ALLERGY. Medications: Home medications include: 1. Avapro. 2. Aldactone. 3. Ibuprofen. 4. Lasix. Current Medication in the hospital, IV fluid and morphine. Review of Systems: The patient poor historian, nonobtainable. Physical Examination: Vital Signs: When I saw the patient, blood pressure 96/88, pulse of 100. Chest: Clear to auscultation. Heart: S1, S2. Regular. Abdomen: Soft, nontender. Extremities: +1 edema. Neuro: Alert, nonfocal. Laboratory Data: WBC 6.9, H and H 12/35.3, platelets 172, eosinophil 11.7. Sodium 135, potassium 6.1, bicarb 27, BUN 85, creatinine 1.7, calcium 9.2, magnesium 2.9. BNP 155. Reviewing the record for the patient, the patient was having ER visit back in the middle of the December at that time, her creatinine was 0.6 with GFR above 90. The patient underwent CT PE protocol was negative. Assessment And Plan: Acute kidney injury secondary to possible contrast superimposed with poor perfusion ATN and contrast Currently, blood pressure on the lower side. I am going to hold all the blood pressure medication especially ARB given the hyperkalemia, we will start the patient on aggressive hydration and we will follow up. will send for renal ultrasound to R/o Obstructive uropathy , will send for protein creatinine and uric acid to evaluate the condition giving the peripheral eosinophilia will send for Urine Eos . I am going to go ahead and hold all current medication especially the blood pressure medication and we will send for urine eosinophil. 2. Hyperkalemia secondary to renal failure/ Aldactone and Avapro . We will start hydrating and hols above medication . Potassium down to 5.3. We will keep hydrating and we will monitor the patient. I am going to send for CK and TSH. 3. Hypotension, We will follow up with the primary. Hold all blood pressure medications. Thank you Dr. Hoff for allowing us to participate in the care of your patient. ELO Voice ID: [id number] Report ID: [id number] [id number]
== END 2018-02-21 11:00 | disposition left against medical advice (07) | DRG 682 ==
LOC: ER 13:00 → ERHOLD 15:09 → 3RD-ICU 19:26
PROVIDERS: ADMIT Family Medicine; ATTEND Internal Medicine Sleep Medicine
DX: N17.9 Acute kidney failure, unspecified (principal); G93.41 Metabolic encephalopathy; I13.0 Hypertensive heart and chronic kidney disease with heart failure and stage 1 through stage 4 chronic kidney disease, or unspecified chronic kidney disease; N18.9 Chronic kidney disease, unspecified; I50.9 Heart failure, unspecified; E87.5 Hyperkalemia; E78.5 Hyperlipidemia, unspecified; I95.9 Hypotension, unspecified; E86.0 Dehydration; G89.29 Other chronic pain; Z47.1 Aftercare following joint replacement surgery; Z96.642 Presence of left artificial hip joint; F17.210 Nicotine dependence, cigarettes, uncomplicated; E66.9 Obesity, unspecified; Z68.31 Body mass index [BMI] 31.0-31.9, adult; J45.909 Unspecified asthma, uncomplicated; G47.00 Insomnia, unspecified
CPT/HCPCS: 36415; 70450; 71045; 76770; 80048; 80053; 80069; 81003; 82140; 82550; 82553; 82570; 82962; 83735; 83880; 83970; 84132; 84156; 84484; 85025; 85610; 85730; 93005; 94760; 96361; 96365; 96375; 99285; J0360; J0610; J2270; J7030